=== PATIENT | female | born 1990 | race Caucasian/White ===

== ENCOUNTER 2017-07-24 07:14 | Emergency (ER) | payer OTHER ==
[~2017-07-24] VITALS: Ht 165.1 cm; Wt 83.0 kg
[~2017-07-24 07:14] MED LIST: ACETAMINOPHEN325 M1 PO; MONO-LINYAH1 EACH PO
== END 2017-07-24 09:17 | disposition home or self-care (01) ==
LOC: ED 07:14
DX: G43.909 Migraine, unspecified, not intractable, without status migrainosus (principal); F17.200 Nicotine dependence, unspecified, uncomplicated; Z90.89 Acquired absence of other organs; Z88.5 Allergy status to narcotic agent; Z88.6 Allergy status to analgesic agent; Z79.899 Other long term (current) drug therapy
CPT/HCPCS: 96374; 96375; 99282; J1200; J2765; J7030

== ENCOUNTER 2019-06-27 21:41 | Emergency (ER) | payer OTHER ==
[~2019-06-27] VITALS: Ht 165.1 cm; Wt 88.5 kg
[2019-06-27] MEDS ORDERED: CRUTCH1 EACH (22:15)
== END 2019-06-27 22:34 | disposition home or self-care (01) ==
LOC: ED 21:41
DX: S93.401A Sprain of unspecified ligament of right ankle, initial encounter (principal); F17.200 Nicotine dependence, unspecified, uncomplicated; Z88.5 Allergy status to narcotic agent; X50.1XXA Overexertion from prolonged static or awkward postures, initial encounter
CPT/HCPCS: 73610; 99283

== ENCOUNTER 2021-08-15 19:45 | Emergency (ER) | payer BC, OTHER ==
[~2021-08-15] VITALS: Ht 165.1 cm; Wt 88.5 kg
[~2021-08-15 19:45] MED LIST changes: +CRUTCH1 EACH
== END 2021-08-15 21:56 | disposition home or self-care (01) ==
LOC: ED 19:45
DX: G43.109 Migraine with aura, not intractable, without status migrainosus (principal); F17.200 Nicotine dependence, unspecified, uncomplicated; Z88.5 Allergy status to narcotic agent
CPT/HCPCS: 70450; 96374; 96375; 99284-25; J1200; J2765; J7030

== ENCOUNTER 2022-03-11 11:04 | Emergency (ER) | payer BC, OTHER ==
[~2022-03-11] VITALS: Ht 165.1 cm; Wt 88.5 kg
== END 2022-03-11 12:37 | disposition home or self-care (01) ==
LOC: ED 11:04
DX: S93.401A Sprain of unspecified ligament of right ankle, initial encounter (principal); G43.909 Migraine, unspecified, not intractable, without status migrainosus; F17.200 Nicotine dependence, unspecified, uncomplicated; Z88.5 Allergy status to narcotic agent; X50.1XXA Overexertion from prolonged static or awkward postures, initial encounter
CPT/HCPCS: 73610; 99283-25; A9270